=== PATIENT | female | born 2000 | race Caucasian/White ===

== ENCOUNTER 2023-09-24 16:14 | Emergency (ER) | payer OTHER ==
[2023-09-24 16:25] VITALS: BP 135/80; PULSE 104; RESP 18; TEMP 98.3; BMI 21.4
[2023-09-24] MEDS ORDERED: MAG HYDROX/AL HYDROX/SIMETH -MYLANTA- ORAL SUSPENSION PO ONE (17:39)
[2023-09-24] MEDS ORDERED: SODIUM CHLORIDE 1,000 ML IV STA (17:39)
[2023-09-24 19:13] LABS: BASO % 0.7 % (0-2.0); EOS % 0.7 % (0-4.5); HEMOGLOBIN 13.7 GM/dL (10.7-15.3); LYMPH % 29.1 % (8-40); MCH 31.5 pg (25.7-33.7); MCHC 33.5 g/dl (32.0-36.0); MEAN PLT VOLUME 7.3 fl (7.5-11.1); MONO % 6.4 % (3.8-10.2); NEUT % 63.1 % (42.8-82.8); PLATELET COUNT 300 10^3/uL (134-434); RBC 4.36 M/mm3 (3.60-5.2); RDW 12.5 % (11.6-15.6); WHITE BLOOD COUNT 8.3 K/mm3 (4.0-10.0)
[2023-09-24 19:41] LABS: ALBUMIN 4.2 g/dl (3.4-5.0); BLOOD UREA NITROGEN 8.1 mg/dL (7-18)
[2023-09-24 19:44] LABS: CREATININE 0.8 mg/dL (0.55-1.3)
[2023-09-24 19:46] LABS: BILIRUBIN,TOTAL 0.3 mg/dL (0.2-1); TOT PROT 7.6 g/dl (6.4-8.2)
== END 2023-09-24 20:18 | disposition home or self-care (01) ==
LOC: JER 16:14
DX: R94.31 Abnormal electrocardiogram [ECG] [EKG] (principal); R00.0 Tachycardia, unspecified; R00.2 Palpitations; R07.9 Chest pain, unspecified
CPT/HCPCS: 36415; 80053; 83735; 84484; 84703; 85025; 85379; 93005; 93010; 99284-25